=== PATIENT | female | born 1965 | race Caucasian/White ===

== ENCOUNTER 2019-10-18 11:51 | Observation (INO) | payer BC ==
[~2019-10-18] VITALS: Ht 165.1 cm; Wt 98.7 kg
[~2019-10-18 11:51] MED LIST: ALPR0.5T7 PO; ATOR10TA9 PO; CITA10TA4 PO; LEVO75TA5 PO; MIRA50TA PO; ONDA4TAB13 SL; PANT40TA3 PO; PROM25TA10 PO; ROPI0.5T4 PO; TORADOL; botox INJ; estradiol VG
[2019-10-18] MEDS ORDERED: BUPIVACAINE/PF-EPI 0.5% 1:200K ONE (13:00)
[2019-10-18 13:45] VITALS: BP 121/84
[2019-10-18] MEDS ORDERED: LACTATED RINGERS 1,000 ML IV SCH (13:46)
[2019-10-18] MEDS ORDERED: CHLORHEXIDINE 15 ML UDC MM ONE (14:00)
[2019-10-18] MEDS ORDERED: MIDAZOLAM 1 MG/ML, 2ML ONE (14:50)
[2019-10-18] MEDS ORDERED: FENTANYL PF 250 MCG/5ML ONE (14:50)
[2019-10-18] MEDS ORDERED: MEPERIDINE/PF 25MG/0.5ML IVPush PRN (15:00)
[2019-10-18] MEDS ORDERED: HALOPERIDOL 5 MG/ML IV PRN (15:00)
[2019-10-18] MEDS ORDERED: HYDROcodone/APAP 7.5-325MG/15ML UDC PO PRN (15:00)
[2019-10-18] MEDS ORDERED: hydrALAzine 20 MG/ML, 1ML IV PRN ×2 (15:00→16:00)
[2019-10-18] MEDS ORDERED: LABETALOL 5MG/ML, 20ML IV PRN (15:00)
[2019-10-18] MEDS ORDERED: PROMETHAZINE 25 MG/ML, 1ML IVPush PRN (15:00)
[2019-10-18] MEDS ORDERED: DIPHENHYDRAMINE 50 MG/ML, 1ML IVPush PRN (15:00)
[2019-10-18] MEDS ORDERED: EPHEDRINE 50 MG/ML, 1ML ONE (15:01)
[2019-10-18] MEDS ORDERED: ONDANSETRON 2MG/ML, 2ML ONE (15:39)
[2019-10-18] MEDS ORDERED: SUCCINYLCHOLINE 20 MG/ML, 10ML ONE (15:39)
[2019-10-18] MEDS ORDERED: ROCURONIUM 10MG/ML,5ML ONE (15:39)
[2019-10-18] MEDS ORDERED: DEXAMETHASONE 4 MG/ML, 1ML ONE (15:39)
[2019-10-18] MEDS ORDERED: PROPOFOL 10 MG/ML, 20ML ONE (15:39)
[2019-10-18] MEDS ORDERED: GLYCOPYRROLATE 0.2MG/1ML, 5ML ONE (15:39)
[2019-10-18] MEDS ORDERED: CEFAZOLIN 1,000 MG ONE (15:39)
[2019-10-18] MEDS ORDERED: NEOSTIGMINE 1 MG/ML, 10ML ONE (15:39)
[2019-10-18] MEDS ORDERED: PROMETHAZINE 25 MG/ML, 1ML ONE (15:52)
[2019-10-18] MEDS ORDERED: FENTANYL PF 100 MCG/2ML ONE (15:57)
[2019-10-18] MEDS ORDERED: HYDROmorphone 1 MG/ML, 1ML INJ ONE (15:58)
[2019-10-18] MEDS ORDERED: KETOROLAC 30 MG/1 ML IV PRN (16:00)
[2019-10-18] MEDS ORDERED: DIPHENHYDRAMINE 50 MG/ML, 1ML IV PRN (16:00)
[2019-10-18] MEDS ORDERED: PROMETHAZINE 25 MG/ML, 1ML IM PRN (16:00)
[2019-10-18] MEDS ORDERED: ONDANSETRON 2MG/ML, 2ML IVPush PRN (16:00)
[2019-10-18] MEDS ORDERED: LORazepam 2 MG/ML, 1ML IV PRN (16:00)
[2019-10-18] MEDS ORDERED: PROMETHAZINE 12.5 MG SUPP PR PRN (16:00)
[2019-10-18] MEDS: FENTANYL PF 100 MCG/2ML IV PRN ×3 (16:00→16:25)
[2019-10-18] MEDS ORDERED: HYDROmorphone 1 MG/ML, 1ML INJ IV PRN (16:00)
[2019-10-18] MEDS ORDERED: ENALAPRILAT 1.25 MG/ML, 2ML IV PRN (16:00)
[2019-10-18] MEDS ORDERED: KETOROLAC 30 MG/1 ML ONE (16:06)
[2019-10-18] MEDS: HYDROmorphone 1 MG/ML, 1ML INJ IVPush PRN ×2 (16:06→16:28)
[2019-10-18] MEDS ORDERED: HALOPERIDOL 5 MG/ML ONE (16:06)
[2019-10-18] MEDS ORDERED: MEPERIDINE/PF 25MG/ML,1ML ONE (16:07)
[2019-10-18] MEDS ORDERED: LORazepam 2 MG/ML, 1ML ONE (16:12)
[2019-10-18] MEDS ORDERED: LORazepam 2 MG/ML, 1ML IVPush PRN (16:30)
[2019-10-18 18:15] VITALS: BP 124/80
[2019-10-18] MEDS: HYDROcodone/APAP 7.5-325MG/15ML UDC PO PRN ×2 (19:55→21:02)
[2019-10-18] MEDS ORDERED: PANTOPRAZOLE 40MG TABLET PO SCH (21:00)
[2019-10-18] MEDS: LACTATED RINGERS 1,000 ML IV SCH (21:00)
[2019-10-18 23:22] VITALS: BP 96/60
[2019-10-19] MEDS: HYDROcodone/APAP 7.5-325MG/15ML UDC PO PRN ×3 (01:38→11:13)
[2019-10-19] MEDS ORDERED: KETOROLAC 30 MG/1 ML IV PRN (02:00)
[2019-10-19 03:32] VITALS: BP 104/64
[2019-10-19] MEDS: LACTATED RINGERS 1,000 ML IV SCH ×3 (05:00→12:22)
[2019-10-19 06:31] VITALS: BP 114/72
[2019-10-19] MEDS ORDERED: CITALOPRAM 20 MG TABLET ONE (08:42)
[2019-10-19] MEDS ORDERED: ONDANSETRON 2MG/ML, 2ML IVPush PRN (09:00)
[2019-10-19] MEDS ORDERED: LORazepam 2 MG/ML, 1ML IVPush PRN (09:00)
[2019-10-19] MEDS ORDERED: PROMETHAZINE 25 MG/ML, 1ML IM PRN (09:00)
[2019-10-19] MEDS ORDERED: PANTOPRAZOLE 40MG TABLET PO SCH (09:00)
[2019-10-19] MEDS ORDERED: HYDROmorphone 1 MG/ML, 1ML INJ IV PRN ×2 (09:00)
[2019-10-19] MEDS ORDERED: ROPINIROLE 0.5MG TABLET PO SCH ×2 (09:00)
[2019-10-19] MEDS ORDERED: ENOXAPARIN 40 MG/0.4 ML SQ SCH ×2 (09:00)
[2019-10-19] MEDS ORDERED: LORazepam 2 MG/ML, 1ML IV PRN (09:00)
[2019-10-19] MEDS ORDERED: ENALAPRILAT 1.25 MG/ML, 2ML IV PRN (09:00)
[2019-10-19] MEDS ORDERED: PROMETHAZINE 12.5 MG SUPP PR PRN (09:00)
[2019-10-19] MEDS ORDERED: hydrALAzine 20 MG/ML, 1ML IV PRN (09:00)
[2019-10-19] MEDS ORDERED: DIPHENHYDRAMINE 50 MG/ML, 1ML IV PRN (09:00)
[2019-10-19] MEDS ORDERED: LEVOTHYROXINE 75 MCG TABLET PO SCH ×2 (09:00)
[2019-10-19] MEDS ORDERED: LACTATED RINGERS 1,000 ML IV SCH (09:00)
[2019-10-19] MEDS ORDERED: CITALOPRAM 10 MG TABLET PO SCH (09:00)
[2019-10-19 13:18] VITALS: BP 114/72
== END 2019-10-19 14:20 | disposition home or self-care (01) ==
LOC: OR 13:23 → EDSTATUS 15:30 → 4NE 16:58 → OR 16:58
PROVIDERS: ADMIT Thoracic Surgery (Cardiothoracic Vascular Surgery); ATTEND Thoracic Surgery (Cardiothoracic Vascular Surgery)
DX: K56.50 Intestinal adhesions [bands], unspecified as to partial versus complete obstruction (principal); K46.9 Unspecified abdominal hernia without obstruction or gangrene; E66.9 Obesity, unspecified; F32.9 Major depressive disorder, single episode, unspecified; E78.00 Pure hypercholesterolemia, unspecified; E78.1 Pure hyperglyceridemia; G25.81 Restless legs syndrome; K21.9 Gastro-esophageal reflux disease without esophagitis; E03.9 Hypothyroidism, unspecified; Z68.34 Body mass index [BMI] 34.0-34.9, adult; Z98.84 Bariatric surgery status
CPT/HCPCS: 44180; 96372; 96374; 96375; G0378; J0330; J0690; J1100; J1170; J1650; J1885; J2060; J2175; J2250; J2405; J2550; J2704; J2710; J3010; U0001